=== PATIENT | male | born 1980 | race Two or more races ===

== ENCOUNTER 2025-03-16 10:13 | Emergency (ER) | payer SELFPAY ==
[~2025-03-16] VITALS: Ht 182.9 cm; Wt 75.7 kg
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
--- NOTE | 2025-03-16 11:15 | DVH ---
CLINICAL INDICATION: FALL TECHNIQUE: XY R WRIST 3+ VIEW XRAY Comparison: None FINDINGS/IMPRESSION: : Minimally displaced longitudinally oriented fracture of the distal radial metaphysis extends to the a rticular surface. Soft tissues are unremarkable.
[2025-03-16] MEDS ORDERED: IBUP-1456 PO (11:21)
[2025-03-16] MEDS ORDERED: CEPH500C PO (11:21)
[2025-03-16 11:29] VITALS: BP 124/69; PULSE 88; RESP 18; TEMP 97.9; O2SAT 95
== END 2025-03-16 11:46 | disposition home or self-care (01) ==
LOC: ER 10:13
DX: S52.591A Other fractures of lower end of right radius, initial encounter for closed fracture (principal); S40.211A Abrasion of right shoulder, initial encounter; V29.881A Electric (assisted) bicycle rider (driver) (passenger) injured in other specified transport accidents, initial encounter; Y93.I9 Activity, other involving external motion; Y92.488 Other paved roadways as the place of occurrence of the external cause; Y99.8 Other external cause status
CPT/HCPCS: 29125; 73110